=== PATIENT | female | born 1990 | race Caucasian/White ===

== ENCOUNTER 2024-07-23 17:12 | Observation (INO) | payer BC, SELFPAY ==
[2024-07-23 10:00] VITALS: BP 163/93
[2024-07-23 11:02] VITALS: BMI 24.9
--- NOTE | 2024-07-23 12:25 | ED.GENMED ---
History of Present Illness
General
Chief Complaint: Headache
Source: patient
Exam Limitations: none
Time Seen by Provider: 07/23/24 11:06
Nursing documentation reviewed up to this point in time: agreed with
History of Present Illness
History of Present Illness:
Patient presents to ED secondary to persistent left-sided headache over the past 2 months, along with intermittent visual changes as well as left facial numbness sensation. Patient has been evaluated by her primary care physician as well as
online merchandising coordinator due to eye discomfort as well as headache. Patient was told that her symptoms are likely secondary to sinus. Patient has an appointment with ENT physician next month. Patient has been taking Advil and Sudafed at home with minimal
relief in symptoms. Patient reports intermittent nausea sensation without vomiting. Denies blurred vision. Denies dizziness. Denies loss of sensation or weakness. Denies difficulty with speech. Patient currently does not take any prescription
medications daily.
Review of Systems
Review of Systems
Allergies reviewed?: Yes
All Other Systems: ROS reviewed and negative except as documented in HPI and ROS
Constitutional: Reports no symptoms
Respiratory: Reports no symptoms; Denies trouble breathing
Cardiac: Reports no symptoms; Denies chest pain or syncope
ABD/GI: Reports nausea; Denies vomiting
: Reports no symptoms
Musculoskeletal: Reports no symptoms
Skin: Reports no symptoms
Neurological: Reports headache
Phy Exam
Physical Exam
Physical Exam:
Physical Exam
General: mild painful distress, not acutely ill. afebrile
Head: nc/at. eomi
Neck: supple. no meningeal signs.
Heart: s1/s2 regular rate and rhythm, no murmur. equal radial pulses.
Lungs: no acute respiratory distress. clear bilaterally
Abdomen: normal bowel sounds. not tender.
Neuro: alert and oriented x 3. no focal neurological deficits. normal speech.
Skin: no rash
Psychiatric: well kept. interactive and cooperative
Extremities: no edema. no calf tenderness.
Course
Orders/Labs/Results
Orders:
Orders
07/23/24 11:36
Diphenhydramine [Benadryl] 12.5 mg IV NOW STA
Ketorolac [Toradol] 15 mg IV NOW STA
Metoclopramide [Reglan] 10 mg IV NOW STA
07/23/24 11:37
CT Head W/o Iv Contrast Urgent
Comment:
Reason For Exam: headache
0.9% Sodium Chloride 500 ml [Nss] 500 ml IV BOLUS
Test Result ONCE
07/23/24 12:32
Basic Metabolic Panel Urgent
Complete Blood Count/No Diff Urgent
HCG, Serum Qualitative Screen Urgent
Magnesium Urgent
TSH Urgent
07/23/24 13:59
NEUROLOGY CONSULT Urgent
Consulting Provider: Hipolito Valdovinos
Was physician already notified: Yes
Reason for consult: headache
07/23/24 14:31
MR Brain Without Contrast Routine
Comment:
Reason For Exam: left facial numbness, chiari
Recent pill cam endoscopy?: No
MR Cervical Spine Without Routine
Comment:
Reason For Exam: r/o syrinx
Recent pill cam endoscopy?: No
07/23/24 14:32
Magnesium Sulfate 2 Gram/50 ml [Magnesium Sulfate] 2 gram in 50 ml IV NOW
Sumatriptan Succinate [Imitrex] 100 mg PO NOW STA
07/23/24 16:56
Admit/Transfer Patient As Directed
Co-Sign Provider:
Level of Care: Observation services
Assign to:: Medical/Surgical
Physician / Group: aarti sanchez
Diagnosis: L ffacial numb, H/A x 2 months likely migrainewith vertigo
Code Status As Directed
Resuscitation Status: Full Code
07/23/24 17:02
PRN Pain Medication Management As Directed
May give lesser potent ordered pain med per pt: Yes
preference::
Protocol:: Medication orders for pain may be administered in a
manner that supports deferring to patient preference
when the pt is:
- Requesting an ordered lesser potent pain medication.
Least to most potent pain medications are defined
as: acetaminophen < NSAID < tramadol < opioids
(morphine, oxycodone, hydromorphone).
- Requesting a lesser dose of the same medication IF
ORDERED.
- Requesting a less intrusive route of administration
if both routes are prescribed by the provider (PO <
IV).
Abnormal Lab Results
07/23/24
12:32
Plt Count 401 H 10^3/uL
(130-400)
07/23/24 12:32
07/23/24 12:32
Vital Signs
Initial and Last Documented VS:
Initial Vital Signs
Temp Pulse Resp BP Pulse Ox
97.9 F 104 18 163/93 100
07/23/24 10:00 07/23/24 10:00 07/23/24 10:00 07/23/24 10:00 07/23/24 10:00
Last Documented Vital Signs
Temp Pulse Resp BP Pulse Ox
97.9 F 81 16 136/79 97
07/23/24 10:00 07/23/24 16:45 07/23/24 16:45 07/23/24 16:31 07/23/24 16:37
MDM/Problems Addressed
MDM/Problems Addressed:
CT head report reviewed.
Patient evaluated in ED by neurology, Dr. Valdovinos, who recommends admission for further workup, including MRI brain/C-spine, along with continual symptomatic treatment.
*Critical Care Note
Total Time (30-74mins, 75-104mins- exclusive of procedures): Not Applicable
ED Attending Note
-
Portions of this chart may have been created with voice recognition software.� Occasional wrong word or��sound alike� substitutions may have occurred due to the inherent limitations of voice recognition software.
Discharge Plan
Departure
Patient Disposition: Admit
Date of Disposition: 07/23/24
Time of Disposition: 14:56
Admit to: Med/Surg
Presentation/result/management discussed w/ accepting MD/DO: Hospitalist
Discharge Problem:
Acute intractable headache, Arnold-Chiari malformation, type I
Prescriptions:
No Action
L norgest/e.estradiol-e.estrad [Jaimiess] 0.15 mg-30 mcg (84)/10 mcg (7) tablets,dose pack,3 month
1 tab PO DAILY@1700
omega 0-jkc-cvy-fish oil [Fish Oil] 1,000 (120-180) mg Capsule
1 cap PO DAILY
Referrals:
Maverick Alfaro DO [Family Provider] -
Interventions
Interventions:
*Risk Screen - Suicide Last Done: 07/23/24 10:00
*General Assessment Last Done: 07/23/24 10:00
*Neglect/Abuse Screening Last Done: 07/23/24 10:00
ED- Fall Risk Assessment Last Done: 07/23/24 16:38
*ED COVID-19 Vaccine History Last Done: 07/23/24 10:00
ED- Neurological Assessment Last Done: 07/23/24 10:58
Discharge Date and Time
Print Language: SAMOAN
[2024-07-23] MEDS: BENADRYL 12.5 MG IV (12:26)
[2024-07-23] MEDS: NSS 500 IV (12:27)
[2024-07-23] MEDS: REGLAN 10 MG IV (12:28)
[2024-07-23] MEDS: TORADOL 15 MG IV (12:30)
[2024-07-23 12:52] LABS: Hematocrit 43.3 % (37.0-47.0); Hemoglobin 14.8 g/dL (12.0-16.0); Mean Corp Hgb Conc. 34.2 g/dL (33.0-37.0); Mean Corpuscular Hgb 30.3 pg (27.0-31.0); Mean Corpuscular Volume 88.7 fL (81.0-99.0); Mean Platelet Volume 10.2 fL (7.4-10.4); Platelet Count 401 10^3/uL (130-400); Red Blood Cell Count 4.88 10^6/uL (4.20-5.40); Red Cell Dist. Width 11.9 % (11.5-14.5); White Blood Cell Count 9.1 10^3/uL (4.8-10.8)
[2024-07-23 12:58] LABS: HCG, Serum Qualitative Screen Negative
[2024-07-23 13:03] LABS: Blood Urea Nitrogen 17 mg/dl (7-17); Carbon Dioxide 25 mmol/L (22-30); Chloride 103 mmol/L (98-107); Estimated Creatinine Clearance 105 ml/min; Glucose 90 mg/dl (70-99); Potassium 4.3 mmol/L (3.5-5.1); Sodium 136 mmol/L (135-145); eGFR > 60.00
[2024-07-23 13:49] LABS: TSH 1.17 uIU/ml (0.47-4.68)
[2024-07-23 14:13] VITALS: BP 129/75
--- NOTE | 2024-07-23 14:30 | CON.NEURO ---
Neuro Assessment/Plan
Assessment
Head CT, imgs and rept rev'd, Chiari I malformation
2 months headache, new left facial numbness in someone who is not a habitual migraine sufferer
Doubt this is symptomatic Chiari, does not become newly symptomatic at this age.
Plan
left facial numbness, MRI brain w/o contrast r/o demyelinating
MRI cervical spine r/o syrinx
Rx Magnesium sulfate 2g IV, Sumatriptan 100 mg po
Consultation
Order
Date of Consultation: 07/23/24
Requesting Provider: Carl Morillo
Reason for Consult: Headache, Chiari
Subjective/Objective
Subjective Data
Date of Service: July 23, 2024
33 year old woman presents headache and numbness left cheek. Not a habitual migraine sufferer. began May 27 with throbbing pain behind left eye, after 1 week developed into throbbing left sided migraine. some relief with OTC meds but the headache
never actually goes away. several days ago, she developed numbness in the left cheek, which prompted her to come for evaluation. no speech changes, facial droop, vision loss, or limb weakness
Objective Data
Vital Signs
Temp Pulse Resp BP Pulse Ox
36.6 C 77 16 129/75 100
07/23/24 10:00 07/23/24 14:13 07/23/24 14:13 07/23/24 14:13 07/23/24 14:13
Lab Results
07/23/24 12:32
07/23/24 12:32
Sodium 136 mmol/L (135-145) 07/23/24 12:32
Potassium 4.3 mmol/L (3.5-5.1) 07/23/24 12:32
BUN 17 mg/dl (7-17) 07/23/24 12:32
Glucose 90 mg/dl (70-99) 07/23/24 12:32
Calcium 10.0 mg/dl (8.4-10.2) 07/23/24 12:32
Patient Allergies
No Known Allergies Allergy (Unverified 07/23/24 10:02)
Physical Exam
-
AAOx3, speech clear, language intact
VFF, EOMI, face symmetric, decreased sensation L V2 territory
full strength b/l UE/LE,
sensation intact in limbs
DTR normal
[2024-07-23] MEDS: MAGNESIUM SULFATE 50 IV (14:49)
[2024-07-23] MEDS: IMITREX 100 MG PO (14:49)
--- NOTE | 2024-07-23 15:44 | HPS.HSE ---
Family Physician
-
Family Physician: Maverick Alfaro
Chief Complaint
-
Left-sided headache, eye pressure, left-sided facial tingling numbness x 2 months
History of Present Illness
33-year-old female complaining of Left-sided headache over the past 2 months with intermittent visual changes and left-sided facial numbness.
She states she had initial visual impairment with a black center hole in flickering around the area with her left eye that lasted approximately 20 to 25 minutes on May 27. She was seen by her PCP and virtualization engineer and told she had sinus
issues and an occular migraine She was given a steroid Medrol Dosepak ,which she states made the pain in her head worse and encouraged she use a nasal spray by her ENT. She states 5 days later is when her headache began on June 01 and has
persisted for the past 2 months with vertigo and Left side facial numbness.
She states has been going on for approximately 2 months with 1 month of vertigo. She states she has had vertigo in the past. She reports feeling dizzy with her vertigo so she attempted Shreyas maneuvers at home which took away the dizziness but
not the headache. Her headache is left frontal parietal with a pressure sensation, tingling to the left cheek and left top and bottom lips, but with no facial droop. Tongue is midline she has not taken any meclizine or vertigo medications.
She denies blurred vision, neurological deficits or weakness, dizziness, fever, chills, chest pain, palpitations, shortness of breath, cough, abdominal pain, nausea, vomiting, diarrhea. Ct showing Chiari malformation type 1 Patient is unaware of
this and states have never been told this in the past.
She has past medical history of Ocular migraine Nov . the Patient reports she had an 8 out of 10 headache with facial tingling numbness when she came in and after receiving Toradol, Benadryl magnesium, Reglan she states the headache went to a 6
out of 10. She reports after taking sumatriptan 100 mg the headache resolved, but she still has the facial tingling and numbness. she reports the vertigo has only been intermittent since she did the Shreyas maneuver. She has past medical hx of
vertigo, occular migraine.
Medical History
Past Medical History
Past Medical History: Reports Other
Additional Past Medical History:
Vertigo
Left eyeOcular migraine nov 2023
Past Surgical History: Reports Tonsilectomy
Social History
Tobacco: Non-smoker
Alcohol: Occasional
Drug: None
Personal:
Living: With Family ( and children)
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
Family History
Family History: Early CAD (father age 40 stent heart) and Other (Father HTN, HLD, CAD cardiac stent at age 40, sister HTN)
Allergies / Home Medications
Allergies reflects when Allergies were last updated in [employer].
Home Medications with original date entered in [employer]
Allergy/Medication List:
Allergies
Allergy/AdvReac Type Severity Reaction Status Date / Time
No Known Allergies Allergy Unverified 07/23/24 10:02
Home Medications
L norgest/E estradiol-E estrad 0.15 mg-30 mcg (84)/10 mcg(7) tabs,3mos (Jaimiess) 1 tab PO DAILY@1700 Hormonal Agent 07/23/24
omega 9-uje-chs-fish oil 1,000 mg (120 mg-180 mg) capsule (Fish Oil) 1 cap PO DAILY Supplement 07/23/24
Review of Systems
-
History Source: Patient
A 12 point ROS was completed and negative except as noted: Yes
Constitutional: Denies Fever, Fatigue or Chills
EENT: Reports Other (vertiog, dizziness); Denies Sore Throat or Runny Nose
Respiratory: Denies Cough or Trouble Breathing
Cardiac: Denies Chest Pain, Diaphoresis, Palpitations or Syncope
Abdomen/GI: Denies Abdominal Pain, Nausea, Vomiting, Diarrhea or Constipated
: Denies Dysuria, Frequency, Flank Pain, Incontinence or Difficulty Voiding
Musculoskeletal: Denies Joint Pain, Joint Swelling or Muscle Pain
Skin: Denies Itching or Rash
Neurological: Reports Dizzy, Headache (left frontal parietal) and Numbness (tingling left left left side face )
Endocrine: Reports No Symptoms
Hematologic/Lymphatic: Reports No Symptoms
Psych: Reports Calm
Physical Exam
Vital Signs
Vital Signs
Temp Pulse Resp BP Pulse Ox
97.9 F 89 20 129/75 100
07/23/24 10:00 07/23/24 15:30 07/23/24 15:30 07/23/24 14:13 07/23/24 14:13
Physical Exam
General: No Apparent Distress, Comfortable and Conversant; No Fever or Chills
HEENT: NormoCephalic, Anicteric, Moist mucous membranes, Atraumatic, PERRLA (Right sided horizontal nystagmus), [place] Conjunctivae, No Ptosis, Neck Nontender and Other (neg nuchal rigidity)
Respiratory: Clear; No Wheezes, Rales or Rhonchi
Cardiac: S1/S2 and Regular Rhythm; No Murmur, Rub, Gallop or Peripheral Edema
Breast: Deferred by me
GI: Soft, Non Tender, Non Distended and Normal Bowel Sounds
Rectal: Deferred by Provider
Genito-urinary: Deferred by me
Musculoskeletal: No Clubbing, No Cyanosis and No Edema
Skin: Warm and Dry; No Rash or Jaundice
Neuro: AO x 3, No Motor Deficits, Nonfocal/grossly intact, Cranial Nerves Intact, No Sensory Deficits and Other (Right eye horizontal nystagmus mild); No Slurred Speech, Facial Droop, Tremors or Sedated
Psych: Calm
Laboratory Results
-
07/23/24 12:32
07/23/24 12:32
Data Reviewed
-
CT Scan: Report Reviewed by me
Lab Data: Labs Reviewed by me
Impression/Plan
-
Impression/plan:
Observation telemetry
#Intractable headache/Left-sided numbness concern for Demyelination Versus Atypical migraine
-No history of chronic migraines
-MRI cervical spine r/o syrinx
-IV mag sulfate 2 g, benadryl, Toradol given in ER with mild relief
-will cont Iv Toradol 15 mg q6h, Benadryl 25 mg Iv
-Sumatriptan 100 mg p.o. as needed headache(max 200 mg/24H) single dose in Er took pain away, but not facial tingling
-Tylenol as needed headache
- Consult Pt
#Acute dizziness and ataxia secondary to acute on chronic Vertigo
#Hx vertigo
-Symptoms dizziness x 1 month associated with headache
-Patient reports she did her own Shreyas maneuvers at home which took away the vertigo but it came back
-Consult PT for vestibular therapy
Dvt prop
scd's
Full code
[2024-07-23 16:31] VITALS: BP 136/79
--- NOTE | 2024-07-23 16:50 | W.PN.UPDATE ---
Update Note
Progress Note Update
This is an addendum to the H&P written by Zenia Mckee on 07/23/2024. Patient seen and examined independently with STRATEGIC PARTNERSHIP MANAGER.
83-year-old female past medical history of vertigo diagnosed with left eye ocular migraine on May 27 presenting with flickering around the left eye lasting 20 minutes on May 27. She was diagnosed with ocular migraine by primary care
physician/drafter electromechanical. She was treated with Medrol Dosepak for sinusitis. Her headache started a week later persistent left frontal/reciprocal, retro-orbital pulsating headache associated with vertigo.
She performed Shreysa maneuver on herself in the past few weeks with improvement but is continued to have headache. She is also having tingling of the left face.
Presentation consistent with migraine with ocular and vestibular features at times. She noted some improvement symptoms. Sumatriptan helped even further with headache she continues to have tingling. Will continue Toradol, Benadryl, Reglan,
sumatriptan. CT head shows Chiari I malformation unlikely to be contributing to her symptoms. Check MRI brain given neurological symptoms. Neurology consulted. PT for vestibular therapy.
[2024-07-23 18:32] VITALS: BP 139/86; BMI 26.1
--- NOTE | 2024-07-23 18:49 | TRANSFER ---
pt arrives from Er. ambulated to hospital bed by self. vss. reports pain is under control. admission completed. plan of care continues.
[2024-07-23 23:13] VITALS: BP 111/65
[2024-07-24 07:33] VITALS: BP 142/77
[2024-07-24 08:03] LABS: % Basophils 0.7 % (0-2); % Eosinophils 2.5 % (0-6); % Immature Granulocytes 0.2 % (0-0.5); % Lymphocytes 25.3 % (20.5-51.1); % Monocytes 8.4 % (1.7-9.3); % Neutrophils 62.9 % (42.2-75.2); Absolute Basophils 0.1 10^3/uL (0-0.2); Absolute Eosinophils 0.2 10^3/uL (0-0.7); Absolute Lymphocytes 2.1 10^3/uL (1.2-3.4); Absolute Monocytes 0.7 10^3/uL (0.1-0.6); Absolute Neutrophils 5.3 10^3/uL (1.4-6.5); Hematocrit 42.9 % (37.0-47.0); Hemoglobin 14.5 g/dL (12.0-16.0); Mean Corp Hgb Conc. 33.8 g/dL (33.0-37.0); Mean Corpuscular Hgb 30.7 pg (27.0-31.0); Mean Corpuscular Volume 90.7 fL (81.0-99.0); Mean Platelet Volume 10.3 fL (7.4-10.4); Nucleated Red Blood Cells % 0 %; Platelet Count 344 10^3/uL (130-400); Red Blood Cell Count 4.73 10^6/uL (4.20-5.40); White Blood Cell Count 8.4 10^3/uL (4.8-10.8)
[2024-07-24 08:35] LABS: Blood Urea Nitrogen 13 mg/dl (7-17); Calcium 9.3 mg/dl (8.4-10.2); Carbon Dioxide 25 mmol/L (22-30); Chloride 104 mmol/L (98-107); Estimated Creatinine Clearance 88 ml/min; Glucose 98 mg/dl (70-99); Potassium 4.6 mmol/L (3.5-5.1); Sodium 140 mmol/L (135-145); eGFR > 60.00
[2024-07-24 09:16] LABS: Vitamin B12 449 pg/ml (239-931)
[2024-07-24] MEDS: IMITREX 100 MG PO (10:21)
--- NOTE | 2024-07-24 13:02 | W.PN.HOSP.TC ---
Today's Communication/Plan
-
Discharge home if MRI normal and after seen by neuro
Assessment / Plan
Assessment / Plan
Assessment/plan.
Atypical migraine
Patient has no history of migraine but developed migrainous headache on May 27
Intractable headache/Left-sided numbness concern for Demyelination Versus Atypical migraine
No weakness or numbness on either extremity
Follow-up feeling better
-IV mag sulfate 2 g, benadryl, Toradol given in ER with mild relief
-will cont Iv Toradol 15 mg q6h, Benadryl 25 mg Iv
-Sumatriptan 100 mg p.o. as needed headache(max 200 mg/24H) single dose in Er took pain away, but not facial tingling
-Tylenol as needed headache
Neurology consulted.
MRI brain done, results pending.
Possible discharge home today
#Acute dizziness and ataxia secondary to acute on chronic Vertigo
#Hx vertigo
-Symptoms dizziness x 1 month associated with headache
-Patient reports she did her own Shreyas maneuvers at home which took away the vertigo but it came back
-Consult PT for vestibular therapy
Discharge home if MRI neck
CODE STATUS: Full code
DVT prophylaxis: Lovenox
Diet: Regular diet
Anticipated Discharge: Today
Subjective/Interval History
-
Date of Service: July 24, 2024
Patient seen and examined at bedside, denies any chest pain or shortness of breath, no abdominal pain, no nausea, no vomiting, no diarrhea or constipation.
Objective Data
-
Labs:
Laboratory Results
07/24/24
06:46
WBC 8.4
Hgb 14.5
Hct 42.9
Plt Count 344
Sodium 140
Potassium 4.6
Chloride 104
Carbon Dioxide 25
BUN 13
Creatinine 0.8
Glucose 98
Calcium 9.3
Vital Signs:
Vital Signs
Temp Pulse Resp BP Pulse Ox
98.6 F 93 12 142/77 99
07/24/24 07:33 07/24/24 07:33 07/24/24 07:33 07/24/24 07:33 07/24/24 07:33
Physical Exam
-
General: Well Developed and No Apparent Distress
HEENT: Normocephalic, Atraumatic and Moist Mucous Membranes
Respiratory: Clear to Auscultation
Cardiac: Regular Rhythm and S1/S2; Negative Murmur, Rub or Gallop
GI: Soft, Nontender, Nondistended and Normal Bowel Sounds; Negative Organomegaly
Rectal: Deferred by Provider
Musculoskeletal: No Clubbing, No Cyanosis and No Edema
Skin: Negative Rash
Neuro: Nonfocal/Grossly Intact
[2024-07-24] MEDS: TYLENOL 650 MG PO (14:17)
[2024-07-24] MEDS: ZOFRAN 4 MG IV (14:17)
[2024-07-24] MEDS: TORADOL 15 MG IV (14:18)
[2024-07-24 15:13] VITALS: BP 128/86
--- NOTE | 2024-07-24 15:23 | W.DCSUMMARY ---
Discharge Summary
Discharge Data
Date of Admission: 07/23/24
Date of Discharge: 07/24/24
-
Pending Results: No
Hospital Course
Atypical migraine
Patient has no history of migraine but developed migrainous headache on May 27
Intractable headache/Left-sided numbness concern for Demyelination Versus Atypical migraine
No weakness or numbness on either extremity
Follow-up feeling better
-IV mag sulfate 2 g, benadryl, Toradol given in ER with mild relief
-will cont Iv Toradol 15 mg q6h, Benadryl 25 mg Iv
-Sumatriptan 100 mg p.o. as needed headache(max 200 mg/24H) single dose in Er took pain away, but not facial tingling
-Tylenol as needed headache
Neurology consulted.
MRI brain done, came back unremarkable.
MRI cervical spine done shows:
The craniocervical junction appears within normal limits, with no evidence for Chiari malformation.
Normal morphology and signal intensity of the cervical and visualized upper thoracic spinal cord. There is no evidence for syrinx.
No evidence for cord compression or central canal stenosis. There is no significant foraminal narrowing throughout the cervical spine.
Possible discharge home today
#Acute dizziness and ataxia secondary to acute on chronic Vertigo
#Hx vertigo
-Symptoms dizziness x 1 month associated with headache
-Patient reports she did her own Shreyas maneuvers at home which took away the vertigo but it came back
-Consult PT for vestibular therapy
Discharge home if MRI neck
Discharge Plan
-
Patient Disposition: Home (Routine Discharge)
Discharge Diagnosis/Procedures: Atypical migraine
Diet: No restrictions
Activity: No restrictions
Driving Restrictions: As prior to admission
Referrals:
Maverick Alfaro DO [Family Provider] -
Hipolito Valdovinos MD [Active] -
Prescriptions:
New
sumatriptan succinate 50 mg Tablet
100 mg PO ONCE PRN (Reason: HEADACHE) Qty: 9 0RF
Continued
L norgest/e.estradiol-e.estrad [Jaimiess] 0.15 mg-30 mcg (84)/10 mcg (7) tablets,dose pack,3 month
1 tab PO DAILY@1700
omega 3-oea-hvz-fish oil [Fish Oil] 1,000 (120-180) mg Capsule
1 cap PO DAILY
Discharge Orders:
Discharge Patient (As Directed); Ordered 07/24/24
Ordered By: Jose Rafael Denny
Discharge Date and Time
Print Language: STATELESS
[2024-07-24] MEDS: DEPACON 65 MG IV (15:54)
--- NOTE | 2024-07-24 16:26 | CM ---
CM reviewed medical records. Patient is independent with needs. NO needs noted on discharge.
PLAN: Home no needs
[2024-07-24] MEDS: DHE-45 1 MG IV (18:04)
[2024-07-24 22:55] VITALS: BP 112/64
[2024-07-25 08:00] VITALS: BP 140/47
[2024-07-25] MEDS: XYLOCAINE 2% MDV 12 ML INJ (10:06)
--- NOTE | 2024-07-25 10:20 | W.PN.NEURO.1 ---
Today's Communication / Plan
-
bilat occipital and trigeminal nerve blocks performed successfully
d/c home with Sumatriptan 100 mg po, #9 tab box
Neuro Assessment/Plan
Assessment
2 months headache, new left facial numbness in someone who is not a habitual migraine sufferer
Head CT, imgs and rept rev'd, Chiari I malformation
MRI brain and cervical spine imgs and rept reviewed, normal, no demyelinating, no Chiari, no syrinx
improvement in facial numbness with sumatriptan further suggests this is part of her migraine aura
no papilledema to suggest elevated ICP, no need LP
Plan
bilat occipital and trigeminal nerve blocks performed successfully
d/c home with Sumatriptan 100 mg po, #9 tab box
--------
Procedure Note:
61224.50 bilateral occipital nerve block
64917.50 bilateral trigeminal nerve block
dx G43.111 migraine with aura intractable with status migrainosus
In 2x 10 cc syringes 23g x 1.5 in needle, were each drawn 6 cc of lidocaine 2% no epi
bilateral occipital nerve blocks, at the splenius capitis 3 cc each side
bilateral trigeminal nerve block, percutaneous through TMJ, 3 cc each side
after procedure, patient reports successful numb b/l face, scalp
Subjective/Objective
Subjective Data
Date of Service: July 25, 2024
IV valproic acid 1.5 g didn't do anything
transient relief with DHE, headache started coming back 4:30 am and now back to 7/10 as bad as it was before
Objective Data
Vital Signs
Temp Pulse Resp BP Pulse Ox
37.1 C 88 16 140/47 100
07/25/24 08:00 07/25/24 08:00 07/25/24 08:00 07/25/24 08:00 07/25/24 08:00
Lab Results
07/24/24 06:46
07/24/24 06:46
Sodium 140 mmol/L (135-145) 07/24/24 06:46
Potassium 4.6 mmol/L (3.5-5.1) 07/24/24 06:46
BUN 13 mg/dl (7-17) 07/24/24 06:46
Glucose 98 mg/dl (70-99) 07/24/24 06:46
Calcium 9.3 mg/dl (8.4-10.2) 07/24/24 06:46
Vitamin B12 449 pg/ml (239-931) 07/24/24 06:46
Patient Allergies
No Known Allergies Allergy (Verified 07/23/24 16:40)
--- NOTE | 2024-07-25 11:20 | W.PN.HOSP.TC ---
Today's Communication/Plan
-
Discharge home
Assessment / Plan
Assessment / Plan
Assessment/plan.
Atypical migraine
Patient has no history of migraine but developed migrainous headache on May 27
Intractable headache/Left-sided numbness concern for Demyelination Versus Atypical migraine
No weakness or numbness on either extremity
Follow-up feeling better
-IV mag sulfate 2 g, benadryl, Toradol given in ER with mild relief
-will cont Iv Toradol 15 mg q6h, Benadryl 25 mg Iv
-Sumatriptan 100 mg p.o. as needed headache(max 200 mg/24H) single dose in Er took pain away, but not facial tingling
-Tylenol as needed headache
Neurology consulted.
MRI brain done, results pending.
Possible discharge home today
07/25
MRI brain and cervical spine negative.
Status post trigeminal nerve block today.
Feeling better and will be discharged home
#Acute dizziness and ataxia secondary to acute on chronic Vertigo
#Hx vertigo
-Symptoms dizziness x 1 month associated with headache
-Patient reports she did her own Shreyas maneuvers at home which took away the vertigo but it came back
-Consult PT for vestibular therapy
Discharge home if MRI neck
CODE STATUS: Full code
DVT prophylaxis: Lovenox
Diet: Regular diet
Anticipated Discharge: Today
Subjective/Interval History
-
Date of Service: July 25, 2024
Patient seen and examined at bedside, denies any chest pain or shortness of breath, no abdominal pain, no nausea, no vomiting, no diarrhea or constipation.
Status post bilateral trigeminal nerve-feeling much better.
Objective Data
-
Vital Signs:
Vital Signs
Temp Pulse Resp BP Pulse Ox
98.8 F 88 16 140/47 100
07/25/24 08:00 07/25/24 08:00 07/25/24 08:00 07/25/24 08:00 07/25/24 08:00
Physical Exam
-
General: Well Developed and No Apparent Distress
HEENT: Normocephalic, Atraumatic and Moist Mucous Membranes
Respiratory: Clear to Auscultation
Cardiac: Regular Rhythm and S1/S2; Negative Murmur, Rub or Gallop
GI: Soft, Nontender, Nondistended and Normal Bowel Sounds; Negative Organomegaly
Rectal: Deferred by Provider
Musculoskeletal: No Clubbing, No Cyanosis and No Edema
Skin: Negative Rash
Neuro: Nonfocal/Grossly Intact
--- NOTE | 2024-07-25 11:26 | W.DCSUMMARY ---
Discharge Summary
Discharge Data
Date of Admission: 07/23/24
Date of Discharge: 07/25/24
-
Pending Results: No
Hospital Course
Atypical migraine
Patient has no history of migraine but developed migrainous headache on May 27
Intractable headache/Left-sided numbness concern for Demyelination Versus Atypical migraine
No weakness or numbness on either extremity
Follow-up feeling better
-IV mag sulfate 2 g, benadryl, Toradol given in ER with mild relief
-will cont Iv Toradol 15 mg q6h, Benadryl 25 mg Iv
-Sumatriptan 100 mg p.o. as needed headache(max 200 mg/24H) single dose in Er took pain away, but not facial tingling
-Tylenol as needed headache
Neurology consulted.
MRI brain done, came back unremarkable.
MRI cervical spine done shows:
The craniocervical junction appears within normal limits, with no evidence for Chiari malformation.
Normal morphology and signal intensity of the cervical and visualized upper thoracic spinal cord. There is no evidence for syrinx.
No evidence for cord compression or central canal stenosis. There is no significant foraminal narrowing throughout the cervical spine.
07/25/2024
Status post trigeminal injection.
discharge home today
#Acute dizziness and ataxia secondary to acute on chronic Vertigo
#Hx vertigo
-Symptoms dizziness x 1 month associated with headache
-Patient reports she did her own Shreyas maneuvers at home which took away the vertigo but it came back
-improved
Discharge Plan
-
Patient Disposition: Home (Routine Discharge)
Discharge Diagnosis/Procedures: Atypical migraine
Condition: Good
Diet: No restrictions
Activity: No restrictions
Driving Restrictions: As prior to admission
Stand Alone Forms: Return to Work
Referrals:
Maverick Alfaro DO [Family Provider] -
Hipolito Valdovinos MD [Active] -
Prescriptions:
New
sumatriptan succinate 50 mg Tablet
100 mg PO ONCE PRN (Reason: HEADACHE) Qty: 9 0RF
Continued
L norgest/e.estradiol-e.estrad [Jaimiess] 0.15 mg-30 mcg (84)/10 mcg (7) tablets,dose pack,3 month
1 tab PO DAILY@1700
omega 0-qvm-rff-fish oil [Fish Oil] 1,000 (120-180) mg Capsule
1 cap PO DAILY
Discharge Orders:
Discharge Patient (As Directed); Ordered 07/24/24
Ordered By: Jose Rafael Denny
Discharge Date and Time
Discharge Date/Time: 07/25/24 10:58
Print Language: SLOVENIAN
== END 2024-07-25 10:58 | disposition home or self-care (01) ==
LOC: 1 ACUTE 17:12
PROVIDERS: Clinical Nurse Specialist Family Health; ADMITTING PHYSICIAN Hospitalist; ATTENDING PHYSICIAN General Practice; CONSULT PHYSICIAN Psychiatry & Neurology Clinical Neurophysiology; EMERGENCY PHYSICIAN Emergency Medicine; FAMILY PHYSICIAN Family Medicine
DX: G43.009 Migraine without aura, not intractable, without status migrainosus (principal); R20.0 Anesthesia of skin; H53.9 Unspecified visual disturbance; R11.0 Nausea; R27.0 Ataxia, unspecified; G93.5 Compression of brain; Z82.49 Family history of ischemic heart disease and other diseases of the circulatory system; Z83.49 Family history of other endocrine, nutritional and metabolic diseases; Z79.890 Hormone replacement therapy
CPT/HCPCS: 70450; 70551; 72141; 80048; 82607; 83735; 84443; 84703; 85025; 85027; 96361; 96365; 96366; 96375; 97161; 99285; G0378